=== PATIENT | male | born 1980 | race African-American/Black ===

== ENCOUNTER 2019-01-16 04:30 | Emergency (ER) | payer SELFPAY ==
[2019-01-16] MEDS ORDERED: Ketorolac Tromethamine 30 MG/ML VIAL ONE (04:56)
[2019-01-16 04:57] LABS: #Basophils 0.2 thou/uL (0.0-0.2); #Eosinphils 0.3 thou/uL (0.0-0.7); #Lymphocytes 2.7 thou/uL (1.20-3.40); #Monocytes 0.8 thou/uL (0.11-0.59); #Neutrophils 3.5 thou/uL (1.40-6.50); %Basophils 2.1 % (0.0-1.0); %Eosinophils 3.8 % (0.0-10.0); %Monocytes 11.3 % (0.0-10.0); %Neutrophils 46.9 % (42.0-75.0); Hemoglobin 15.1 g/dL (14.0-18.0); Mean Corpuscular HGB CONC 33.5 g/dL (32.0-36.0); Mean Corpuscular Hemoglobin 29.3 pg (27.0-31.0); Mean Corpuscular Volume 87.5 fL (78.0-98.0); Platelet Count 197 thou/uL (130-400); RBC Distribution Width 12.2 % (11.5-14.5); Red Blood Cell (RBC) Count 5.17 mill/uL (4.70-6.10); White Blood Cell (WBC) Count 7.4 thou/uL (4.8-10.8)
[2019-01-16 05:00] LABS: MDiff Complete? YES; Manual Diff?? NO
[2019-01-16 05:11] LABS: ALT (SGPT) 46 U/L (8-55); AST (SGOT) 68 U/L (5-34); Albumin 4.1 g/dL (3.5-5.0); Alkaline Phosphatase 51 U/L (40-150); Anion Gap 11 mmol/L (10-20); BUN (Urea Nitrogen) 11 mg/dL (8.9-20.6); Bilirubin, Total 0.4 mg/dL (0.2-1.2); Calc. Creatinine Clearance 0 mL/min (70-130); Calcium 9.3 mg/dL (7.8-10.44); Carbon Dioxide 27 mmol/L (22-29); Chloride 104 mmol/L (98-107); Estimated GFR-MDRD 90; Globulin 3.3 g/dL (2.4-3.5); Glucose 95 mg/dL (70-105); Lipase 34 U/L (8-78); Potassium 3.9 mmol/L (3.5-5.1); Protein, Total 7.4 g/dL (6.0-8.3); Sodium 138 mmol/L (136-145)
--- NOTE | 2019-01-16 07:08 | RAD ---
AP PORTABLE CHEST: 01/16/2019 0447 HOURS FINDINGS: An AP portable film at 0447 hours shows a normal sized heart and clear lungs. No infiltrate or effus ion is seen. There is no vascular congestion or edema. The mediastinum appears normal, and the trac hea is midline. IMPRESSION: No acute thoracic findings. POS: HOME
== END 2019-01-16 05:25 | disposition home or self-care (01) ==
LOC: BURERS 04:30
DX: R07.89 Other chest pain (principal)
CPT/HCPCS: 71045; 80053; 83690; 84484; 85025; 93005; 94760; 96374; J1885